=== PATIENT | female | born 1945 | race Caucasian/White ===

== ENCOUNTER 2016-07-09 12:57 | Outpatient (CLI) | payer MEDICARE, OTHER | END 2016-07-09 12:58 | disposition home or self-care (01) | DX: Z12.31 Encounter for screening mammogram for malignant neoplasm of breast (principal); Z80.3 Family history of malignant neoplasm of breast ==

== ENCOUNTER 2017-01-19 09:25 | Day surgery (SDC) | payer MEDICARE, OTHER ==
[2017-01-19] MEDS ORDERED: LACTATED RINGERS 1,000 ML IV ONE (09:36)
[2017-01-19] MEDS ORDERED: fentaNYL 100 MCG/2 ML VIAL IVP ONE (11:05)
[2017-01-19] MEDS ORDERED: MIDAZOLAM 2 MG/2 ML VIAL IVP ONE (11:05)
[2017-01-19 12:02] VITALS: BP 109/56
== END 2017-01-19 09:26 | disposition home or self-care (01) ==
LOC: SDS 09:25
PROVIDERS: ATTEND Internal Medicine
PROC: 0DJD8ZZ Inspection of Lower Intestinal Tract, Via Natural or Artificial Opening Endoscopic (ICD-10-PCS; principal; 2017-01-19 10:30)
DX: Z12.11 Encounter for screening for malignant neoplasm of colon (principal); K57.30 Diverticulosis of large intestine without perforation or abscess without bleeding; Z86.010 Personal history of colon polyps; I10 Essential (primary) hypertension
CPT/HCPCS: G0105; J7120

== ENCOUNTER 2017-04-05 15:58 | Outpatient (CLI) | payer MEDICARE, OTHER | END 2017-04-05 15:59 | disposition home or self-care (01) | LOC: LAB.R 15:58 | PROVIDERS: ATTEND Obstetrics & Gynecology | DX: N39.3 Stress incontinence (female) (male) (principal) | CPT/HCPCS: 87086 ==

== ENCOUNTER 2017-05-26 11:40 | Outpatient (CLI) | payer MEDICARE, OTHER ==
[2017-05-26 12:13] LABS: BILIRUBIN,URINE NEGATIVE (NEGATIVE); GLUCOSE, URINE (UA) NEGATIVE (NEGATIVE); KETONES,URINE (UA) NEGATIVE (NEGATIVE); LEUKOCYTE ESTERASE, URINE NEGATIVE (NEGATIVE); NITRITE,URINE NEGATIVE (NEGATIVE); OCCULT BLOOD,URINE NEGATIVE (NEGATIVE); PROTEIN,URINE NEGATIVE (NEGATIVE); UROBILINOGEN,URINE 0.2 (NORMAL) E.U./dL (NORMAL)
[2017-05-26 12:25] LABS: BACTERIA,URINE None Seen /HPF (None Seen); CLARITY,URINE CLEAR (CLEAR); MUCUS,URINE Few Strands; RBC,URINE None Seen /HPF (0-5); SQUAMOUS EPITHELIAL CELL,UR NONE SEEN (<= Few)
== END 2017-05-26 11:41 | disposition home or self-care (01) ==
LOC: LAB 11:40
PROVIDERS: ATTEND Obstetrics & Gynecology
DX: R82.99 Other abnormal findings in urine (principal)
CPT/HCPCS: 81001; 87086

== ENCOUNTER 2017-10-07 14:13 | Outpatient (CLI) | payer MEDICARE, OTHER ==
--- NOTE | 2017-10-10 17:28 | Mammography Report ---
DIGITAL SCREENING MAMMOGRAM: 10/07/2017 CLINICAL INDICATION: A 71-year-old with family history of breast cancer for screening. COMPARISON: 06/2016, 07/2015, 06/2014, 05/2013, 01/2012, 01/2011, 08/2009. TECHNIQUE: Routine CC and MLO projections were obtained of the breasts. FINDINGS: The breasts again demonstrate scattered fibroglandular densities bilaterally. Coarse and punctate, typically benign calcifications are present. No suspicious masses, clustered microcalcifications, or regions of architectural distortion are identified. IMPRESSION: BENIGN FINDINGS. RECOMMENDATION: Routine annual screening unless otherwise clinically indicated. BIRADS category 2 benign findings. STANDARD QUALIFYING STATEMENTS 1. This examination was reviewed with the aid of Computed-Aided Detection (CAD). 2. A negative or benign imaging report should not delay biopsy if clinically suspicious findings are present. Consider surgical consultation if warranted. More than 5% of cancers are not identified by imaging. 3. Dense breasts may obscure an underlying neoplasm. TD: 10/10/2017 16:00
== END 2017-10-07 14:14 | disposition home or self-care (01) ==
LOC: DI 14:13
PROVIDERS: ATTEND Physician Assistant Medical
DX: Z12.31 Encounter for screening mammogram for malignant neoplasm of breast (principal); Z80.3 Family history of malignant neoplasm of breast
CPT/HCPCS: 77067

== ENCOUNTER 2017-10-19 09:00 | Outpatient (CLI) | payer MEDICARE, OTHER ==
[2017-10-19 09:30] LABS: BASOPHILS # (AUTO) 0.1 10^3/uL (0.0-0.1); BASOPHILS % (AUTO) 2.2 %; EOSINOPHILS # (AUTO) 0.1 10^3/uL (0.0-0.7); EOSINOPHILS % (AUTO) 2.5 %; HGB - HEMOGLOBIN 12.6 g/dL (12.0-16.0); LYMPHOCYTES # (AUTO) 1.5 10^3/uL (1.5-3.5); LYMPHOCYTES % (AUTO) 30.8 %; MEAN CORPUSCULAR VOLUME 90.9 fL (81.0-99.0); MEAN PLATELET VOLUME 8.6 fL (7.9-10.8); MONOCYTES # (AUTO) 0.5 10^3/uL (0.0-1.0); MONOCYTES % (AUTO) 10.5 %; NEUTROPHILS # (AUTO) 2.6 10^3/uL (1.5-6.6); PLT - PLATELET COUNT 188 10^3/uL (130-450); RED CELL DISTRIBUTION WIDTH 13.3 % (12.0-15.0); WHITE BLOOD COUNT 4.8 x10^3/uL (4.8-10.8)
[2017-10-19 09:53] LABS: ALBUMIN 4.1 g/dL (3.2-5.5); ALBUMIN/GLOBULIN RATIO 1.3 (1.0-2.2); ALKALINE PHOSPHATASE 53 IU/L (42-121); ALT ALANINE AMINOTRANSFERASE 12 IU/L (10-60); AST ASPARTATE AMINOTRANSFERASE 20 IU/L (10-42); BILIRUBIN,TOTAL 0.4 mg/dL (0.2-1.0); BUN - BLOOD UREA NITROGEN 13 mg/dL (6-20); CALCIUM 9.5 mg/dL (8.5-10.3); CARBON DIOXIDE - CO2 29 mmol/L (21-32); CHLORIDE 103 mmol/L (101-111); CHOL/HDL RATIO 2.6 (<4.4); CHOLESTEROL 135 mg/dL; CREATININE 0.9 mg/dL (0.4-1.0); GFR - MDRD 62 (>89); GLUCOSE 98 mg/dL (70-100); HDL CHOLESTEROL 52 mg/dL; LDL CHOLESTEROL,CALCULATED 62 mg/dL; LDL/HDL RATIO 1.2 (<4.4); SODIUM 138 mmol/L (135-145); TOTAL PROTEIN 7.2 g/dL (6.7-8.2); VLDL CHOLESTEROL 21 mg/dL
[2017-10-20 13:48] LABS: HEPATITIS C ANTIBODY NON-REACTIVE (NON-REACTIVE)
== END 2017-10-19 09:01 | disposition home or self-care (01) ==
LOC: LAB 09:00
PROVIDERS: ATTEND Physician Assistant Medical
DX: E78.2 Mixed hyperlipidemia (principal); I10 Essential (primary) hypertension; Z79.899 Other long term (current) drug therapy; Z11.59 Encounter for screening for other viral diseases; Z72.89 Other problems related to lifestyle; M81.0 Age-related osteoporosis without current pathological fracture
CPT/HCPCS: 36415; 80053; 80061; 83721; 84443; 85025; 86803

== ENCOUNTER 2017-12-13 13:01 | Outpatient (CLI) | payer MEDICARE, OTHER ==
--- NOTE | 2017-12-14 08:23 | DEXA Report ---
Procedure Date: 12/13/2017 Accession Number: [id number] / [id number] Procedure: DEX - Dexa Spine and/or Hip CPT Code: FULL RESULT: EXAM: Dexa Spine and/or Hip DATE: 12/13/2017 1:44 PM CLINICAL HISTORY: OSTEOPOROSIS TECHNIQUE: Dual energy x-ray absorptiometry (DXA) was performed on a [employer] System. Regions measured are the AP Spine, femoral neck, and if needed forearm. COMPARISON: None. In accordance with the International Society for Clinical Densitometry (ISCD) guidelines, data from previous exams may be reanalyzed using current recommendations and techniques. This is done to allow a more accurate basis for comparison with the current study. FINDINGS: The data for the lumbar spine is as follows: BMD (g/cm/cm) T-SCORE Z-SCORE REGION L1 0.816 -2.6 -1.4 L2 0.952 -2.1 -0.8 L3 0.957 -2.0 -0.8 L4 1.141 -0.5 0.7 TOTAL 0.981 -1.7 -0.4 NOTE: All evaluable vertebrae are used for classification The data for the hip is as follows: BMD (g/cm/cm) T-SCORE Z-SCORE REGION Neck 0.795 -1.7 -0.3 TOTAL 0.846 -1.3 -0.1 NOTE: The femoral neck or total proximal femur, whichever is lowest, is used for classification. IMPRESSION: THE WHO CLASSIFICATION BASED ON THE INTERNATIONAL REFERENCE STANDARD IS OSTEOPENIA. THE FRACTURE RISK IS INCREASED. RECOMMENDATION: Patients with diagnosis of osteoporosis or osteopenia should have regular bone mineral density assessment. For those eligible for Medicare, routine testing is allowed once every 2 years. Testing frequency can be increased for patients who have rapidly progressing disease or for those who are receiving medical therapy to restore bone mass. COMMENT: World Health Organization (WHO) definitions for osteoporosis and osteopenia: NORMAL BMD: T-score at -1.0 or higher, fracture risk is low OSTEOPENIA BMD: T-score between -1.0 and -2.5, fracture risk is increased. OSTEOPOROSIS BMD: T-score at -2.5 or lower, fracture risk is high. National Osteoporosis Foundation recommends: 1. Obtain adequate dietary calcium (at least 1200 mg per day) and vitamin D (400-800 international units per day). 2. Participate, as appropriate, in regular weightbearing and muscle-strengthening exercise. 3. Avoid tobacco use and reduce alcohol and caffeine intake. 4. For more detailed information see the website at www.NOF.org.
== END 2017-12-13 13:02 | disposition home or self-care (01) ==
LOC: DI 13:01
PROVIDERS: ATTEND Physician Assistant Medical
DX: M81.0 Age-related osteoporosis without current pathological fracture (principal); M85.89 Other specified disorders of bone density and structure, multiple sites
CPT/HCPCS: 77080

== ENCOUNTER 2018-05-09 15:33 | Outpatient (CLI) | payer MEDICARE, OTHER ==
--- NOTE | 2018-05-10 10:45 | XRAY Report ---
Reason: HIP PAIN,LEFT Procedure Date: 05/09/2018 Accession Number: [id number] / [id number] Procedure: XR - Hip w/Pelvis 2-3V LT CPT Code: FULL RESULT: EXAM: LEFT HIP AND PELVIS RADIOGRAPHY EXAM DATE: 05/09/2018 03:59 PM. HISTORY: Hip pain, left. COMPARISONS: None. TECHNIQUE: 1 view of the pelvis and 1 view of the hip. FINDINGS: Bones: Normal. No fracture or bone lesion. Joints: The bilateral hip joint spaces are moderately narrowed. The pubis symphysis demonstrates degenerative changes. The sacroiliac joints are preserved. Soft Tissues: Normal. No soft tissue swelling. IMPRESSION: Relatively symmetric moderate degenerative changes of the hip joints and the pubic symphysis. RADIA
== END 2018-05-09 15:34 | disposition home or self-care (01) ==
LOC: DI 15:33
PROVIDERS: ATTEND Internal Medicine
DX: M16.0 Bilateral primary osteoarthritis of hip (principal)

== ENCOUNTER 2019-10-10 10:18 | Outpatient (CLI) | payer MEDICARE, OTHER ==
--- NOTE | 2019-10-10 14:51 | Mammography Report ---
BILATERAL DIGITAL SCREENING MAMMOGRAM 3D/2D: 10/10/2019 CLINICAL: Routine screening. Comparison is made to exams dated: 10/07/2017 mammogram, 07/09/2016 mammogram, and 07/07/2015 mammogram - [facility]. There are scattered fibroglandular elements in both breasts. No significant masses, calcifications, or other findings are seen in either breast. There has been no significant interval change. IMPRESSION: NEGATIVE There is no mammographic evidence of malignancy. A 1 year screening mammogram is recommended. This exam was interpreted at Station ID: [id number]. NOTE: For mammograms, a report in lay terms will be sent to the patient. Approximately 15% of breast malignancies will not be visualized mammographically. In the management of a palpable breast mass, a negative mammogram must not discourage biopsy of a clinically suspicious lesion. Electronically Signed By: Bonita perez/jairad:10/10/2019 12:19:50 ACR BI-RADS Category 1: Negative 3341F PARENCHYMAL PATTERN: (A) - The breast(s) demonstrate(s) scattered fibroglandular densities. BI-RADS CATEGORY: (1) - 1 RECOMMENDATION: (ANNUAL) - Recommend routine annual screening mammography. [id number] 1 year screening LATERALITY: (B)
== END 2019-10-10 10:19 | disposition home or self-care (01) ==
LOC: DI 10:18
DX: Z12.31 Encounter for screening mammogram for malignant neoplasm of breast (principal)
CPT/HCPCS: 77063; 77067

== ENCOUNTER 2020-04-22 11:46 | Outpatient (CLI) | payer MEDICARE, OTHER ==
[2020-04-22 12:15] LABS: BASOPHILS % (AUTO) 0.6 %; EOSINOPHILS # (AUTO) 0.1 10^3/uL (0.0-0.7); LYMPHOCYTES # (AUTO) 1.7 10^3/uL (1.5-3.5); LYMPHOCYTES % (AUTO) 33.6 %; MEAN CORPUSCULAR HEMOGLOBIN 28.8 pg (27.0-31.0); MEAN CORPUSCULAR HGB CONC 31.3 g/dL (32.0-36.0); MEAN PLATELET VOLUME 9.8 fL (7.9-10.8); MONOCYTES # (AUTO) 0.5 10^3/uL (0.0-1.0); MONOCYTES % (AUTO) 8.7 %; NEUTROPHILS # (AUTO) 2.9 10^3/uL (1.5-6.6); NEUTROPHILS % (AUTO) 55.9 %; PLT - PLATELET COUNT 236 10^3/uL (130-450); RED BLOOD COUNT 4.51 10^6/uL (4.20-5.40); RED CELL DISTRIBUTION WIDTH 12.4 % (12.0-15.0); WHITE BLOOD COUNT 5.2 x10^3/uL (4.8-10.8)
[2020-04-22 12:36] LABS: ALBUMIN 4.4 g/dL (3.2-5.5); ALBUMIN/GLOBULIN RATIO 1.4 (1.0-2.2); ALKALINE PHOSPHATASE 65 IU/L (42-121); ALT ALANINE AMINOTRANSFERASE 14 IU/L (10-60); AST ASPARTATE AMINOTRANSFERASE 17 IU/L (10-42); BILIRUBIN,TOTAL 0.4 mg/dL (0.2-1.0); BUN - BLOOD UREA NITROGEN 12 mg/dL (6-20); CARBON DIOXIDE - CO2 26 mmol/L (21-32); CHLORIDE 99 mmol/L (101-111); CHOL/HDL RATIO 3.2 (<4.4); CHOLESTEROL 185 mg/dL; CREATININE 0.9 mg/dL (0.4-1.0); GLUCOSE 99 mg/dL (70-100); HDL CHOLESTEROL 57 mg/dL; LDL CHOLESTEROL,CALCULATED 96 mg/dL; LDL/HDL RATIO 1.7 (<4.4); SODIUM 137 mmol/L (135-145); TOTAL PROTEIN 7.5 g/dL (6.7-8.2); VLDL CHOLESTEROL 32 mg/dL
--- NOTE | 2020-04-22 13:47 | XRAY Report ---
PROCEDURE: Knee 3 View RT INDICATIONS: KNEE JOINT PAIN, RIGHT TECHNIQUE: 3 views of the right knee(s) were acquired. COMPARISON: None. FINDINGS: Bones: No fractures or dislocations. No suspicious bony lesions. Mild tricompartmental periarticul ar osteophyte formation. Soft tissues: No joint effusion. Medial and lateral compartment chondrocalcinosis. IMPRESSION: 1. Osteoarthritis. 2. Chondrocalcinosis. 3. No acute fracture. No osseous lesion. If symptoms and/or clinical suspicion for pathology continue , further assessment with repeat plain films, or advanced imaging (e.g., CT, MRI, or bone scan) is re commended for further assessment. Reviewed by: Mary Shearer MD on 04/22/2020 1:46 PM PST Approved by: Mary Shearer MD on 04/22/2020 1:46 PM PST Station ID: [id number]
== END 2020-04-22 11:47 | disposition home or self-care (01) ==
LOC: LAB 11:46
PROVIDERS: ATTEND Nurse Practitioner
DX: M17.11 Unilateral primary osteoarthritis, right knee (principal); M11.261 Other chondrocalcinosis, right knee; M25.561 Pain in right knee; E78.2 Mixed hyperlipidemia; I10 Essential (primary) hypertension; K21.9 Gastro-esophageal reflux disease without esophagitis; Z79.899 Other long term (current) drug therapy
CPT/HCPCS: 36415; 80053; 80061; 83721; 84443; 85025

== ENCOUNTER 2020-06-20 15:14 | Outpatient (CLI) | payer MEDICARE, OTHER ==
--- NOTE | 2020-06-20 16:42 | Ultrasound Report ---
PROCEDURE: Pelvic w/Transvaginal INDICATIONS: POSTMENOPAUSAL BLEEDING TECHNIQUE: Real-time scanning was performed of the pelvic organs, with image documentation. Additional endovagi nal scanning was necessary due to incomplete visualization of the adnexal and endometrial structures by transabdominal scanning. COMPARISON: None. FINDINGS: No pathologic free abdominal or pelvic fluid. Uterus: Uterus is normal in size at 8.5 x 3.4 x 4.8 cm. The endometrium measures 25 mm in combined thickness, predominantly secondary to a focal nodular mass measuring 31 mm.. Ovaries: The right ovary is not seen secondary to overlying bowel. Left ovary is within normal limit s measuring 22 mm. IMPRESSION: 1. Focal endometrial thickening as described above, possibly representing a polyp or fibroid. Hystero scopy/endometrial sampling versus MRI of the pelvis with and without intravenous contrast is recommen ded for further assessment. 2. Right ovary is not well seen. Left ovary is within normal limits. Reviewed by: Mary Shearer MD on 06/20/2020 4:41 PM PST Approved by: Mary Shearer MD on 06/20/2020 4:41 PM PST Station ID: [id number]
== END 2020-06-20 15:15 | disposition home or self-care (01) ==
LOC: DI 15:14
PROVIDERS: ATTEND Internal Medicine
DX: N95.0 Postmenopausal bleeding (principal); R93.89 Abnormal findings on diagnostic imaging of other specified body structures

== ENCOUNTER 2020-08-15 11:01 | Outpatient (CLI) | payer MEDICARE, OTHER ==
[2020-08-15 11:16] LABS: BASOPHILS # (AUTO) 0.1 10^3/uL (0.0-0.1); BASOPHILS % (AUTO) 1.2 %; EOSINOPHILS # (AUTO) 0.1 10^3/uL (0.0-0.7); EOSINOPHILS % (AUTO) 1.6 %; HCT - HEMATOCRIT 41.7 % (37.0-47.0); HGB - HEMOGLOBIN 13.3 g/dL (12.0-16.0); LYMPHOCYTES # (AUTO) 1.7 10^3/uL (1.5-3.5); LYMPHOCYTES % (AUTO) 29.9 %; MEAN CORPUSCULAR HEMOGLOBIN 29.3 pg (27.0-31.0); MEAN CORPUSCULAR HGB CONC 31.9 g/dL (32.0-36.0); MEAN CORPUSCULAR VOLUME 91.9 fL (81.0-99.0); MEAN PLATELET VOLUME 9.7 fL (7.9-10.8); MONOCYTES # (AUTO) 0.6 10^3/uL (0.0-1.0); MONOCYTES % (AUTO) 9.6 %; NEUTROPHILS # (AUTO) 3.3 10^3/uL (1.5-6.6); NEUTROPHILS % (AUTO) 57.5 %; PLT - PLATELET COUNT 256 10^3/uL (130-450); RED BLOOD COUNT 4.54 10^6/uL (4.20-5.40); RED CELL DISTRIBUTION WIDTH 12.4 % (12.0-15.0); WHITE BLOOD COUNT 5.8 x10^3/uL (4.8-10.8)
== END 2020-08-15 11:02 | disposition home or self-care (01) ==
LOC: LAB 11:01
PROVIDERS: ATTEND Obstetrics & Gynecology
DX: Z01.812 Encounter for preprocedural laboratory examination (principal); N95.0 Postmenopausal bleeding; R93.89 Abnormal findings on diagnostic imaging of other specified body structures; Z20.822 Contact with and (suspected) exposure to COVID-19
CPT/HCPCS: 36415; 85025; U0004

== ENCOUNTER 2020-08-20 07:29 | Day surgery (SDC) | payer MEDICARE, OTHER ==
--- NOTE | 2020-08-20 06:58 | HISTORY & PHYSICAL EXAMINATION ---
HPI - History of Present Illness HPI Comment/Other: Patient is a 74-year-old here for assessment of postmenopausal bleeding. Patient reported that she started having bleeding about 6 weeks ago.. She has had 4 episodes lasting about 4 to 5 days each not high-volume just light bleeding. She believes that the bleeding started the first week in June. She underwent a pelvic ultrasound 06/20/2020 that showed a focal endometrial thickening to 25 mm and a nodular mass measuring 31 mm. She also underwent a Pap smear. She has a history of abnormal Pap smears about 45 years ago. On 06/13/2020 that was normal normal on follow-up. She has had 4 vaginal deliveries. No history of hormone replacement therapy. She is sexually active but no vaginal penetration. Past medical history is notable for hypertension, hyperlipidemia, GERD, and colon cancer which did not require chemo/rads. Family history notable for multiple family members with breast cancer including her mother diagnosed at age 42. Her last mammogram was 10/10/2019 Allergies: No Known Allergies Medications: OXYBUTYNIN CHLORIDE ER 10 MG ORAL TABLET EXTENDED RELEASE 24 HOUR (OXYBUTYNIN CHLORIDE) take one tablet by mouth daily; Route: ORAL OMEPRAZOLE 20 MG ORAL CAPSULE DELAYED RELEASE (OMEPRAZOLE) take one tablet by mouth daily; Route: ORAL ESTRACE 0.1 MG/GM VAGINAL CREAM (ESTRADIOL) Insert 1 gram intravaginally BIW- TIW; Route: VAGINAL VITAMIN D (CHOLECALCIFEROL) 1000 UNIT ORAL CAPSULE (CHOLECALCIFEROL) take one tablet by mouth daily; Route: ORAL MULTI-VITAMIN DAILY ORAL TABLET (MULTIPLE VITAMIN) take one tablet by mouth daily; Route: ORAL CO Q-10 100 MG ORAL CAPSULE (COENZYME Q10) Take one (1) tablet by mouth daily.; Route: ORAL FISH OIL 1200 MG ORAL CAPSULE (OMEGA-3 FATTY ACIDS) take two tablets by mouth daily; Route: ORAL ATORVASTATIN CALCIUM 10 MG ORAL TABLET (ATORVASTATIN CALCIUM) take one tablet by mouth at night daily; Route: ORAL LISINOPRIL 20 MG ORAL TABLET (LISINOPRIL) Take one (1) tablet by mouth daily.; Route: ORAL Problems: Thickened endometrium (ICD-793.5) (BJI45-Y88.00) Osteoarthritis (ICD-715.90) (GGF05-V35.90) Postmenopausal bleeding (ICD-627.1) (UTL92-E78.0) Knee joint pain, right (ICD-719.46) (SNB43-A57.561) Shingles (ICD-053.9) (SZB61-W43.9) Low back pain, chronic (ICD-724.2) (ITA06-A11.5) Hip pain, left (ICD-719.45) (NVX55-Y21.552) GERD (ICD-530.81) (JFF27-D87.9) Sun damaged skin (ICD-692.79) (DNN14-F75.8) Overweight (ICD-278.02) (XTJ75-R34.3) Body mass index (BMI) 31.0-31.99, adult (ICD-V85.31) (RIC67-E14.31) Adult preventive care (ICD-V70.0) (KUU23-U16.00) Medication use (ICD-V58.69) (ZUJ21-K74.899) History of colon cancer (ICD-V10.05) (KUS76-E32.038) Onychomycosis (ICD-112.3) (RJA33-Q99.2) Nerve pain (ICD-729.2) (PUD55-S73.2) Seasonal allergic rhinitis (ICD-477.9) (QLU93-C52.2) Osteoporosis (ICD-733.00) (HYA50-F33.0) Hyperlipidema NOS (combined) (ICD-272.4) (PAU85-W60.2) Incontinence, mixed, urge/stress (ICD-788.33) (GNT96-E58.46) Migraines (ICD-346.90) (DNW55-I88.909) Hypertension, benign (ICD-401.1) (NXT83-A30) [Family History-CCC] Social History Summary: Patient has never smoked. Patient has never used smokeless tobacco. Passive Smoke: Y Alcohol Use: Y Drug Use: N HIV/High Risk: N Regular Exercise: N Hx Domestic Abuse: N Cheondoism Affecting Care: N Sexually Active: Y Lives in [place] with her RAZ M T: None E: Special occasions only D: None Safe at home Social History Reviewed: 07/22/2020 Previous Social History: Patient has never smoked. Patient has never used smokeless tobacco. Passive Smoke: Y Alcohol Use: Y Drug Use: N HIV/High Risk: N Regular Exercise: N Hx Domestic Abuse: N Cheondoism Affecting Care: N Risk Factors-CCC with prev: Smoked Tobacco Use: Never smoker Smokeless Tobacco Use: Never Tobacco Use Comments: Childhood Exposure- Father Passive Smoke Exposure: yes HIV High Risk Behavior: no Exercise: no Alcohol Use: yes Type: very rare wine Drinks per day: 1 Drug Use: no Vital Signs: Patient Profile: 74 Years Old Female Height: 62.05 inches (157.6 cm) Weight: 182 pounds BMI: 33.35 BP sittin / 74 Cuff size: regular Vitals Entered By: JOSE G Paniagua (July 22, 2020 3:20 PM) Meds Reviewed: Done Allergies Reviewed: Done No known allergies: T Past Medical History: Irregular Heartbeat Heart Murmur HTN Hyperlipidemia Anemia Colon cancer surgery only with no recurren Past Surgical History: Colon Resection 2007 OB Initial Intake Information Race: White Marital status: SOLAR PANEL INSTALLER Review of Systems ROS Comments: As per HPI, otherwise remaining systems are negative. Flowsheet View for Follow-up Visit Weight: 182 Blood pressure: 128 / 74 Physical Constitutional: GEN: NAD HEAD: NCAT EYES: No scleral icterus or conjunctival injection NECK: No cervical LAD or TM CV: RRR RESP: CTAB, normal effort ABD: S&NT/ND PSYCH: appropriate affect NEURO: alert and oriented, normal gait and coordination EXT: WWP Impression & Recommendations: Problem # 1: Postmenopausal bleeding (ICD-627.1) (QNO73-Z90.0) We reviewed the clinical implications for post-menopausal bleeding and concern for hyperplasia/malignancy Reviewed that EMB can be performed to get preliminary assessment of hyperplasia risk. However, it is a poor mechanism to smaple solid masses and the nodular mass should be sampled and removed. Recommended proceeding with hysteroscopy D&C and offered EMB as a preliminary first step. Patient is opting to proceed with hysteroscopy D&C R/B/A reviewed Request for OR submitted. Patient to return for preop visit once surgery date established PMH/PSH - Past Medical History Cardiovascular: positive: Hypertension, High cholesterol, Murmur Respiratory: positive: None Endocrine/Autoimmune: positive: None GI: positive: GERD, Other : positive: Incontinence, Frequency HEENT: positive: None Psych: positive: None Musculoskeletal: positive: Osteoarthritis Derm: positive: None MRSA Hx?: No - Past Surgical History General: positive: Colonoscopy, EGD, Other Ortho: positive: Hip replacement Social & Family Hx - Social History Smoking Status: Never smoker Meds/Allgy - Home Medications Home Medications: Ambulatory Orders Medication Instructions Recorded Confirmed Atorvastatin Calcium 10 mg PO HS 09/26/12 08/07/20 Lisinopril [Zestril] 20 mg PO DAILY 09/26/12 08/07/20 Calcium Carbonate/Vitamin D3 1 each PO BID 05/17/17 08/07/20 [Calcium 600-Vit D3 400 Tablet] Cholecalciferol (Vitamin D3) 1,000 units PO DAILY 05/17/17 08/07/20 [Vitamin D3] Multivit with Calcium,Iron,Min 1 each PO DAILY 05/17/17 08/07/20 [Multiple Vitamins For Women] [place]-3S/Dha/Epa/Fish Oil [Fish 2 cap PO DAILY 05/17/17 08/07/20 Oil [place]-3 Softgel] Oxybutynin Chloride [Ditropan Xl] 10 mg PO DAILY 05/17/17 08/07/20 Ubidecarenone [Co Q-10] 100 mg PO DAILY 05/17/17 08/07/20 Omeprazole [PriLOSEC] 20 mg PO DAILY 08/19/17 08/07/20 - Allergies Allergies/Adverse Reactions: Allergies Allergy/AdvReac Type Severity Reaction Status Date / Time No Known Drug Allergies Allergy Verified 01/18/17 10:34
[~2020-08-20 07:29] MED LIST: ACETAMINOPHEN 1,000 MG/100 ML 100 ML IV ONE; BUPIVACAINE 0.25% PF 30 ML VIAL ONE; CELECOXIB 100 MG CAPSULE PO ONE; GABAPENTIN 400 MG CAPSULE ONE; LIDOCAINE MPF 2%-EPI 1:200000 20 ML VIAL ONE; SILVER NITRATE APPLICATOR TOP ONE; VASOPRESSIN 20 UNIT/ML VIAL ONE
[2020-08-20] MEDS ORDERED: LACTATED RINGERS 1,000 ML IV ONE (07:32)
[2020-08-20] MEDS ORDERED: fentaNYL 100 MCG/2 ML VIAL ONE (07:53)
[2020-08-20] MEDS ORDERED: ROCURONIUM 50 MG/5 ML VIAL ONE (07:54)
[2020-08-20] MEDS ORDERED: DEXAMETHASONE 4 MG/ML VIAL ONE (07:54)
[2020-08-20] MEDS ORDERED: PROPOFOL 200 MG/20 ML VIAL IVP ONE (07:54)
[2020-08-20] MEDS ORDERED: LIDOCAINE-MPF 2% 5 ML VIAL ONE (07:54)
[2020-08-20] MEDS ORDERED: ONDANSETRON 4 MG/2 ML VIAL ONE (07:54)
[2020-08-20] MEDS ORDERED: METOCLOPRAMIDE 10 MG/2 ML VIAL IVP PRN (08:23)
[2020-08-20] MEDS ORDERED: HYDROmorphone 0.5 MG/0.5 ML SYRINGE IVP PRN (08:23)
[2020-08-20] MEDS ORDERED: ATROPINE ABBOJECT 1 MG/10 ML SYRINGE IVP PRN (08:23)
[2020-08-20] MEDS ORDERED: MORPHINE 2 MG/ML CARPUJECT IVP PRN (08:23)
[2020-08-20] MEDS ORDERED: fentaNYL 100 MCG/2 ML VIAL IVP PRN (08:23)
[2020-08-20] MEDS ORDERED: ONDANSETRON 4 MG/2 ML VIAL IVP PRN (08:23)
[2020-08-20] MEDS ORDERED: NALOXONE 0.4 MG/ML VIAL IVP PRN (08:23)
[2020-08-20] MEDS ORDERED: ePHEDrine 50 MG/ML VIAL IVP PRN (08:23)
--- NOTE | 2020-08-20 08:23 | ANESTHESIA ---
Pre-Anesthesia VS, & Labs - Diagnosis post menopausal bleeding - Procedure Hysteroscopy D&C with polypectomy and myomectomy Vital Signs: Temp Pulse Resp BP Pulse Ox 36 C L 70 16 132/80 H 97 08/20/20 07:35 08/20/20 07:35 08/20/20 07:35 08/20/20 07:35 08/20/20 07:35 Height: 5 ft 2 in Weight (kg): 81 kg Body Mass Index: 32.6 BMI Classification: Obese - NPO >8 hours - Is Patient ?: No - Lab Results Current Lab Results: Laboratory Tests 08/20/20 07:55: POC Whole Bld Glucose 89 Lab results reviewed: Yes Home Medications and Allergies Atorvastatin Calcium 10 mg PO HS 09/26/12 Lisinopril [Zestril] 20 mg PO DAILY 09/26/12 Calcium Carbonate/Vitamin D3 [Calcium 600-Vit D3 400 Tablet] 1 each PO BID 05/17/17 Cholecalciferol (Vitamin D3) [Vitamin D3] 1,000 units PO DAILY 05/17/17 Multivit with Calcium,Iron,Min [Multiple Vitamins For Women] 1 each PO DAILY 05/17/17 [place]-3S/Dha/Epa/Fish Oil [Fish Oil [place]-3 Softgel] 2 cap PO DAILY 05/17/17 Oxybutynin Chloride [Ditropan Xl] 10 mg PO DAILY 05/17/17 Ubidecarenone [Co Q-10] 100 mg PO DAILY 05/17/17 Omeprazole [PriLOSEC] 20 mg PO DAILY 08/19/17 Allergies/Adverse Reactions: Allergies Allergy/AdvReac Type Severity Reaction Status Date / Time No Known Drug Allergies Allergy Verified 01/18/17 10:34 Anes History & Medical History - Anesthetic History Anesthesia Complications: reports: No previous complications Family history of Anesthesia Complications: Denies Family history of Malignant Hyperthermia: Denies - Medical History Cardiovascular: reports: Hypertension, High cholesterol, Murmur Pulmonary: reports: None Gastrointestinal: reports: GERD, Other Urinary: reports: Incontinence, Frequency Musculoskeletal: reports: Osteoarthritis Endocrine/Autoimmune: reports: None Skin: reports: None Smoking Status: Never smoker - Surgical History General: reports: Colonoscopy, EGD, Other Orthopedic: reports: Hip replacement Exam General: Alert, Oriented x3, Cooperative, No acute distress Dental: WNL Mouth Openin Fingerbreadth Neck Mobility: Normal Mallampati classification: II Respiratory: Lungs clear, Normal breath sounds, No respiratory distress Cardiovascular: Regular rate, Normal S1, Normal S2, No murmurs Plan Anesthesia Type: General Consent for Procedure(s) Verified and Reviewed: Yes Code Status: Attempt Resuscitation ASA classification: 2-Mild systemic disease Is this case an emergency?: No
[2020-08-20] MEDS ORDERED: LACTATED RINGERS 1,000 ML IV SCH (09:00)
[2020-08-20] MEDS ORDERED: BUPIVACAINE 0.25% PF 30 ML VIAL SUBQ ONE ×2 (09:14)
[2020-08-20] MEDS ORDERED: LIDOCAINE 2%-EPI 1:100000 20 ML MDV SUBQ ONE ×2 (09:15)
[2020-08-20] MEDS ORDERED: VASOPRESSIN 20 UNIT/ML VIAL IVP ONE ×2 (09:15)
[2020-08-20] MEDS ORDERED: LIDOCAINE OINTMENT 5% 35.44 GM TUBE ONE (09:59)
[2020-08-20] MEDS ORDERED: LIDOCAINE OINTMENT 5% 35.44 GM TUBE TOP ONE (10:00)
[2020-08-20] MEDS ORDERED: LACTATED RINGERS 250 ML IV ONE (10:10)
--- NOTE | 2020-08-20 10:34 | OPERATIVE REPORT ---
Operative Report - General Procedure Date: 08/20/20 Planned Procedure: Hysteroscopy D&C with polypectomy/myomectomy Pre-Op Diagnosis: Postmenopausal bleeding, thickened endometrium Procedure Performed: Hysteroscopy D&C with myomectomy Post Op Diagnosis: Same and large intrauterine mass c/w necrotizing fibroid - Procedure Note Primary Surgeon: Ольга Joshi MD Anesthesia Provider: Luis Nassar CRNA Anesthesia Technique: General LMA Pathology: Uterine contents IV Fluids (mL): 750 Estimated Blood Loss (mL): 10 Urine Output (mL): 0 (In and out catheterization at start of procedure) Indications: Patient is a 74-year-old here for hysteroscopy for assessment of postmenopausal bleeding. Patient reported that she started having bleeding about 6 weeks ago.. She has had 4 episodes lasting about 4 to 5 days each not high-volume just light bleeding. She believes that the bleeding started the first week in June. She underwent a pelvic ultrasound 06/20/2020 that showed a focal endometrial thickening to 25 mm and a nodular mass measuring 31 mm. She also underwent a Pap smear on 06/13/2020 that was normal. She has a history of abnormal Pap smears about 45 years ago, normal on follow-up. She has had 4 vaginal deliveries. No history of hormone replacement therapy. She is sexually active but no vaginal penetration. Past medical history is notable for hypertension, hyperlipidemia, GERD, and colon cancer which did not require chemo/rads. Findings: Large intrauterine mass that encompassed all of the endometrial cavity. Soft textured on outer edges and firm/fibrous at base. Internal component of the mass showed cavitations devoid of fluid or other contents. Mass was anchored at right lateral fundal area, just below tubal ostia. Uterine cavity was otherwise empty with smooth contour with bilateral tubal ostia visualized. Complications: None - Other Other Information/Narrative: Risks benefits and alternatives to the procedure were reviewed. Consent was again confirmed. Patient was taken to the operating room where she underwent general anesthesia. She was positioned in dorsolithotomy position with legs resting in yellowfin stirrups. She was prepped and draped in the usual sterile fashion. Preoperative antibiotics were not indicated. Preoperative checklist was performed. Exam under anesthesia was performed. Speculum was placed in the vagina and the cervix was visualized. Single-tooth tenaculum was placed at the anterior cervical lip. Paracervical block was administered using a total of 20 cc of 1% lidocaine with epinephrine mixed with 0.25% bupivicaine was injected at the 4:00 and 8:00 positions lateral to the portio of the cervix. A total of 6 cc of vasopression 10units:50 cc NS was injected around the cervix. The cervical os was serially dilated with Hegar dilators to accommodate the caliber of the diagnostic hysteroscope. The hysteroscope was inserted and findings were noted as above. The hysteroscopic morcellator was inserted through the operative port. The intrauterine mass were morcellated under direct visualization. The base of the mass proved to be fibrotic and could not be morcellated with the light morcellator. The Myoscure Ultra morcellator was inserted and the remainder of the mass was completely morcellated under direct visualization. Uterine cavity was smooth at close of the procedure. Hysteroscope was removed. Sharp curettage D&C was performed with sharp curettage. All instruments were removed from the uterus. Tenaculum was removed. Tenaculum sites were noted to be hemostatic. All instruments were removed from the vagina. Procedure was well-tolerated without complication. Fluid deficit: 850 cc NS
[2020-08-20 11:09] VITALS: BP 129/66
--- NOTE | 2020-08-20 14:59 | ANESTHESIA POST OP EVALUATION ---
Anesthesia Post Eval - Post Anesthesia Eval Vitals: Last Vital Signs Temp 36.4 C L 08/20/20 10:40 Pulse 78 08/20/20 11:08 Resp 14 08/20/20 11:08 BP 129/66 08/20/20 11:08 Pulse Ox 97 08/20/20 11:08 CV Function Including HR & BP: Stable Pain Control: Satisfactory Nausea & Vomiting: Negative Mental Status: Baseline Respiratory Status: Airway Patent Hydration Status: Satisfactory Anesthesia Complications: None
== END 2020-08-20 07:30 | disposition home or self-care (01) ==
LOC: OR 07:29
PROVIDERS: ATTEND Obstetrics & Gynecology
PROC: 0UB98ZZ Excision of Uterus, Via Natural or Artificial Opening Endoscopic (ICD-10-PCS; principal; 2020-08-20 08:30)
PROC: 0UDB7ZZ Extraction of Endometrium, Via Natural or Artificial Opening (ICD-10-PCS; 2020-08-20 08:30)
DX: C54.9 Malignant neoplasm of corpus uteri, unspecified (principal); I10 Essential (primary) hypertension; E78.5 Hyperlipidemia, unspecified; K21.9 Gastro-esophageal reflux disease without esophagitis; E66.9 Obesity, unspecified; Z68.32 Body mass index [BMI] 32.0-32.9, adult; Z85.038 Personal history of other malignant neoplasm of large intestine; Z90.49 Acquired absence of other specified parts of digestive tract

== ENCOUNTER 2020-08-26 12:31 | Outpatient (CLI) | payer MEDICARE, OTHER ==
[2020-08-26 12:48] LABS: HCT - HEMATOCRIT 41.3 % (37.0-47.0); HGB - HEMOGLOBIN 13.3 g/dL (12.0-16.0); MEAN CORPUSCULAR HEMOGLOBIN 29.3 pg (27.0-31.0); MEAN CORPUSCULAR HGB CONC 32.2 g/dL (32.0-36.0); MEAN PLATELET VOLUME 9.7 fL (7.9-10.8); RED BLOOD COUNT 4.54 10^6/uL (4.20-5.40); RED CELL DISTRIBUTION WIDTH 12.5 % (12.0-15.0); WHITE BLOOD COUNT 5.9 x10^3/uL (4.8-10.8)
[2020-08-26 13:02] LABS: ALBUMIN 4.4 g/dL (3.2-5.5); ALBUMIN/GLOBULIN RATIO 1.4 (1.0-2.2); BILIRUBIN,TOTAL 0.4 mg/dL (0.2-1.0); CALCIUM 10.1 mg/dL (8.5-10.3); CREATININE 0.9 mg/dL (0.4-1.0); POTASSIUM 3.8 mmol/L (3.5-5.0); TOTAL PROTEIN 7.6 g/dL (6.7-8.2)
== END 2020-08-26 12:32 | disposition home or self-care (01) ==
LOC: LAB 12:31
PROVIDERS: ATTEND Obstetrics & Gynecology
DX: C54.1 Malignant neoplasm of endometrium (principal)
CPT/HCPCS: 36415; 80053; 85027; 86304

== ENCOUNTER 2020-09-03 15:13 | Outpatient (CLI) | payer MEDICARE, OTHER ==
[2020-09-03] MEDS ORDERED: IOPAMIDOL-300 50 ML VIAL ONE (15:18)
[2020-09-03] MEDS ORDERED: IOPAMIDOL-300 100 ML VIAL ONE (15:19)
[2020-09-03] MEDS ORDERED: IOPAMIDOL-300 100 ML VIAL IVP ONE (17:02)
[2020-09-03] MEDS ORDERED: IOPAMIDOL-300 50 ML VIAL PO ONE (17:03)
--- NOTE | 2020-09-03 17:13 | CT Report ---
PROCEDURE: Abdomen/Pelvis W INDICATIONS: ENDOMETRIAL CA CONTRAST: IV CONTRAST: Isovue 300 ml: 100 PO CONTRAST: Isovue 300 ml50 TECHNIQUE: After the administration of contrast, 5 mm thick sections acquired from the diaphragms to the sym physis. 5 mm thick coronal and sagittal reformats were acquired. For radiation dose reduction, the following was used: automated exposure control, adjustment of mA and/or kV according to patient size . COMPARISON: 06/20/2020 pelvic ultrasound.. FINDINGS: Image quality: Excellent. ABDOMEN: Lung bases: Lung bases are clear. Heart size is normal. Solid organs: Liver and spleen are normal in size and enhancement. Gallbladder appears normal Bili garcia system is non dilated. Pancreas enhances normally. No adrenal nodules. Kidneys demonstrate nor mal size and enhancement, without hydronephrosis. Peritoneum and bowel: Bowel loops demonstrate normal wall thickness and caliber. No free fluid or a ir. Nodes and vessels: No retroperitoneal or mesenteric adenopathy by size criteria. Aorta and inferior vena cava are normal in size. guidance Miscellaneous: No ventral hernias. PELVIS: Genitourinary: Bladder wall thickness is normal. Uterus is anteverted and present, and there is mil d heterogeneity at the fundal portion of the uterus best seen only on series 3 image 69. Miscellaneous: No inguinal hernias or adenopathy. Bones: No suspicious bony lesions. No vertebral body compression fractures. IMPRESSION: Endometrial lining is mildly heterogeneous by CT scanning, but sonographic assessment of the endometrial lining appearance was better accomplished with the prior study 06/20/2020. No evidenc e of metastatic disease within the pelvis, or distant metastatic disease.. Reviewed by: Misael Dean MD on 09/03/2020 5:12 PM PDT Approved by: Misael Dean MD on 09/03/2020 5:12 PM PDT Station ID: [id number]
--- NOTE | 2020-09-03 17:18 | CT Report ---
PROCEDURE: CHEST W INDICATIONS: ENDOMETRIAL CA CONTRAST: IV CONTRAST: Isovue 300 ml: 100 PO CONTRAST: *NO PO CONTRAST TECHNIQUE: After the administration of intravenous contrast, 5 mm thick sections acquired from the pulmonary api dm to the posterior costophrenic angles. 7 mm thick coronal MIP reformats were acquired. For radia tion dose reduction, the following was used: automated exposure control, adjustment of mA and/or kV according to patient size. COMPARISON: CT abdomen/pelvis same day.. FINDINGS: Image quality: Excellent. Lungs and pleura: No acute air space opacities. No pleural effusions or pneumothorax. Central and peripheral airways are patent and normal in caliber. Mediastinum: Heart size is normal. No pericardial effusion. No mediastinal or hilar adenopathy by size criteria. Thoracic aorta and central pulmonary arteries are normal in size. Esophagus is parris l in caliber. No hiatal hernia. Bones and chest wall: No suspicious bony lesions. No vertebral body compression fractures. No axil carmen or supraclavicular adenopathy by size criteria. Thyroid gland appears normal where well seen. Abdomen: Visualized upper abdominal solid organs appear normal. Upper abdominal bowel loops are nor mal in caliber. IMPRESSION: No evidence of metastatic disease from endometrial carcinoma within the chest. Reviewed by: Misael Dean MD on 09/03/2020 5:17 PM PDT Approved by: Misael Dean MD on 09/03/2020 5:17 PM PDT Station ID: [id number]
== END 2020-09-03 15:14 | disposition home or self-care (01) ==
LOC: DI 15:13
PROVIDERS: ATTEND Obstetrics & Gynecology
DX: C54.1 Malignant neoplasm of endometrium (principal)
CPT/HCPCS: 71260; 74177; Q9967

== ENCOUNTER 2020-09-04 15:19 | Outpatient (CLI) | payer MEDICARE, OTHER | END 2020-09-04 15:20 | disposition home or self-care (01) | LOC: RT 15:19 | PROVIDERS: ATTEND Obstetrics & Gynecology | DX: Z01.810 Encounter for preprocedural cardiovascular examination (principal) | CPT/HCPCS: 93005 ==

== ENCOUNTER 2020-11-26 06:13 | Day surgery (SDC) | payer MEDICARE, OTHER ==
[2020-11-26] MEDS ORDERED: ceFAZolin 2 GM/50 ML 2 GM/50 ML BAG IV ONE (06:20)
[2020-11-26] MEDS ORDERED: LACTATED RINGERS 1,000 ML IV ONE ×2 (06:25→08:31)
[2020-11-26] MEDS ORDERED: PROPOFOL 200 MG/20 ML VIAL IVP ONE (07:10)
[2020-11-26] MEDS ORDERED: MIDAZOLAM 2 MG/2 ML VIAL ONE (07:10)
[2020-11-26] MEDS ORDERED: fentaNYL 100 MCG/2 ML VIAL ONE (07:10)
[2020-11-26] MEDS ORDERED: LIDOCAINE-MPF 2% 5 ML VIAL ONE (07:11)
--- NOTE | 2020-11-26 07:14 | ANESTHESIA ---
Pre-Anesthesia VS, & Labs - Diagnosis uterine cancer - Procedure port placement Vital Signs: Temp Pulse Resp BP Pulse Ox 36 C L 73 16 130/90 H 96 11/26/20 06:30 11/26/20 06:30 11/26/20 06:30 11/26/20 06:30 11/26/20 06:30 Height: 5 ft 2 in Weight (kg): 81.3 kg Body Mass Index: 32.8 BMI Classification: Obese - NPO >8 hours - Is Patient ?: No Home Medications and Allergies Atorvastatin Calcium 10 mg PO HS 09/26/12 Lisinopril [Zestril] 20 mg PO DAILY 09/26/12 Calcium Carbonate/Vitamin D3 [Calcium 600-Vit D3 400 Tablet] 1 each PO BID 05/17/17 Cholecalciferol (Vitamin D3) [Vitamin D3] 1,000 units PO DAILY 05/17/17 Multivit with Calcium,Iron,Min [Multiple Vitamins For Women] 1 each PO DAILY 05/17/17 [place]-3S/Dha/Epa/Fish Oil [Fish Oil [place]-3 Softgel] 2 cap PO DAILY 05/17/17 Ubidecarenone [Co Q-10] 100 mg PO DAILY 05/17/17 Omeprazole [PriLOSEC] 20 mg PO DAILY 08/19/17 Allergies/Adverse Reactions: Allergies Allergy/AdvReac Type Severity Reaction Status Date / Time No Known Drug Allergies Allergy Verified 11/25/20 10:01 Anes History & Medical History - Anesthetic History Anesthesia Complications: reports: No previous complications - Medical History Cardiovascular: reports: Hypertension, High cholesterol, Murmur Pulmonary: reports: None Gastrointestinal: reports: GERD, Other Urinary: reports: Incontinence, Frequency Musculoskeletal: reports: Osteoarthritis Endocrine/Autoimmune: reports: None Skin: reports: None Smoking Status: Never smoker History of Cancer?: Yes - Surgical History General: reports: Colonoscopy, EGD, Other Gynecologic: reports: Dilation and currettage, Hysterectomy Orthopedic: reports: Hip replacement Exam General: Alert Dental: WNL Mouth Opening: Greater than 4 Fingerbreadths Mallampati classification: II Thyromental Distance: greater than 6 cm Respiratory: Lungs clear Cardiovascular: Regular rate, Normal S1, Normal S2 Plan Anesthesia Type: General, MAC Consent for Procedure(s) Verified and Reviewed: Yes Code Status: Attempt Resuscitation ASA classification: 3-Severe systemic disease Is this case an emergency?: No
[2020-11-26] MEDS ORDERED: BUPIVACAINE 0.5% PF 30 ML VIAL ONE (07:19)
[2020-11-26] MEDS ORDERED: LIDOCAINE 1% 50 ML MDV ONE (07:19)
--- NOTE | 2020-11-26 07:22 | HISTORY & PHYSICAL EXAMINATION ---
Chief Complaint - Chief Complaint Chief Complaint: uterine cancer History of Present Illness - History Obtained From Records Reviewed: yes History obtained from: pt Exam Limitations: none - History of Present Illness HPI Comment/Other: Recent diagnosis and surgery for uterine cancer. Chemotherapy has been recommended. 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: Dilation and currettage, Hysterectomy Meds/Allgy - Home Medications Home Medications: Ambulatory Orders Medication Instructions Recorded Confirmed Atorvastatin Calcium 10 mg PO HS 09/26/12 11/26/20 Lisinopril [Zestril] 20 mg PO DAILY 09/26/12 11/26/20 Calcium Carbonate/Vitamin D3 1 each PO BID 05/17/17 11/26/20 [Calcium 600-Vit D3 400 Tablet] Cholecalciferol (Vitamin D3) 1,000 units PO DAILY 05/17/17 11/26/20 [Vitamin D3] Multivit with Calcium,Iron,Min 1 each PO DAILY 05/17/17 11/26/20 [Multiple Vitamins For Women] [place]-3S/Dha/Epa/Fish Oil [Fish 2 cap PO DAILY 05/17/17 11/26/20 Oil [place]-3 Softgel] Ubidecarenone [Co Q-10] 100 mg PO DAILY 05/17/17 11/26/20 Omeprazole [PriLOSEC] 20 mg PO DAILY 08/19/17 11/26/20 Prochlorperazine Maleate 10 mg PO Q6HR PRN #30 tab 10/17/20 11/26/20 [Compazine] Lidocaine/Prilocain 2.5% Cream 5 applic TOP UD #1 gm 11/10/20 11/26/20 [Emla 2.5% Cream] - Allergies Allergies/Adverse Reactions: Allergies Allergy/AdvReac Type Severity Reaction Status Date / Time No Known Drug Allergies Allergy Verified 11/25/20 10:01 Review of Systems - Other Findings Other Findings: 10 pt ros as above otherwise unremarkable Exam - Vital Signs Reviewed Vital Signs: Yes Vital Signs: Vital Signs x48h Temp Pulse Resp BP Pulse Ox 11/26/20 06:30 36 C L 73 16 130/90 H 96 - Physical Exam General Appearance: positive: No acute distress, Alert Eyes Bilateral: positive: PERRL, EOMI ENT: positive: No signs of dehydration Neck: positive: No JVD Respiratory: positive: No respiratory distress, Breath sounds nml Cardiovascular: positive: Regular rate & rhythm Abdomen: positive: No distention Neurologic/Psychiatric: positive: Oriented x3 Conclusion/Plan - Problem List (1) Uterine cancer Conclusion/Plan: plan port placement for chemotherapy. parq held and consent obtained
[2020-11-26] MEDS ORDERED: BUPIVACAINE 0.25% PF 30 ML VIAL ONE (07:31)
[2020-11-26] MEDS ORDERED: LIDOCAINE 1% 50 ML MDV SUBQ ONE ×2 (07:46)
[2020-11-26] MEDS ORDERED: BUPIVACAINE 0.25% PF 30 ML VIAL SUBQ ONE ×2 (07:46)
--- NOTE | 2020-11-26 08:31 | OPERATIVE REPORT ---
Operative Report - General Procedure Date: 11/26/20 Planned Procedure: power port placement Pre-Op Diagnosis: uterine cancer Procedure Performed: left subclavian power port placement Post Op Diagnosis: uterine cancer - Procedure Note Primary Surgeon: bartolo sutton Anesthesia Technique: Local, MAC Pathology: none Estimated Blood Loss (mL): 2 Drain/Tube Type: Other (none) Indications: chemotherapy Findings: good position confirmed under fluoro Complications: none - Other Other Information/Narrative: The patient was properly identified brought to the operating room and placed in supine position. Monitored anesthesia care was given as well as IV sedation. A towel roll was placed under the upper back. The patient was prepped and draped in a sterile fashion and given preoperative antibiotics. Local anesthetic was given. The left subclavian vein was easily accessed first pass with a needle. A subcutaneous pocket on the left upper chest was created measuring approximately 2-1/2 cm. Portacatheter tubing was then placed subcutaneous up to the venous access point. The portacatheter tubing was then easily placed with the use of a dilator peel-away sheath. The tubing was aspirated and flushed with saline. Under fluoroscopic guidance the tubing was pulled back to the junction of the atrium and the superior vena cava. The portacatheter aspirated and flushed easily assuring good position. The portacatheter was then cut to size and further assembled. The port was secured to subcutaneous tissue with 2 interrupted 4-0 Prolene sutures. The port again was aspirated and flushed now with heparin. Buried interrupted subdermal 3-0 Vicryl sutures were then placed. Skin was closed with buried interrupted and running 4-0 Monocryl subcuticular suture. Dressing was applied. The patient tolerated the procedure well was awakened and brought to recovery in good condition.
[2020-11-26] MEDS ORDERED: HYDROcod/ACETAM 5/325 MG TABLET PO PRN (08:36)
[2020-11-26 09:06] VITALS: BP 139/94
--- NOTE | 2020-11-26 09:23 | ANESTHESIA POST OP EVALUATION ---
Anesthesia Post Eval - Post Anesthesia Eval Vitals: Last Vital Signs Temp 36.2 C L 11/26/20 09:06 Pulse 65 11/26/20 09:06 Resp 11 L 11/26/20 09:06 BP 139/94 H 11/26/20 09:06 Pulse Ox 100 11/26/20 09:06 CV Function Including HR & BP: Stable Pain Control: Satisfactory Nausea & Vomiting: Negative Mental Status: Baseline Respiratory Status: Airway Patent Hydration Status: Satisfactory Anesthesia Complications: None
--- NOTE | 2020-11-26 09:47 | XRAY Report ---
PROCEDURE: OR Port-A-Cath INDICATIONS: PORT PLACEMENT TECHNIQUE: Single operative image COMPARISON: None. FINDINGS: A single operative image demonstrates that a central venous catheter tip projects to the SVC right at rial junction. IMPRESSION: Operative imaging utilized during Port-A-Cath placement. Reviewed by: Tyson Reyes MD on 11/26/2020 9:46 AM PDT Approved by: Tyson Reyes MD on 11/26/2020 9:46 AM PDT Station ID: [id number]
== END 2020-11-26 06:14 | disposition home or self-care (01) ==
LOC: SDS 06:13
PROVIDERS: ATTEND Surgery
DX: C55 Malignant neoplasm of uterus, part unspecified (principal); I10 Essential (primary) hypertension; R01.1 Cardiac murmur, unspecified; E78.00 Pure hypercholesterolemia, unspecified; K21.9 Gastro-esophageal reflux disease without esophagitis; R32 Unspecified urinary incontinence; R35.0 Frequency of micturition; E66.9 Obesity, unspecified; Z68.32 Body mass index [BMI] 32.0-32.9, adult; Z79.899 Other long term (current) drug therapy; Z96.649 Presence of unspecified artificial hip joint; Z90.710 Acquired absence of both cervix and uterus
CPT/HCPCS: 36561; C1788; J0690; J7120

== ENCOUNTER 2021-04-02 14:01 | Outpatient (CLI) | payer MEDICARE, OTHER ==
--- NOTE | 2021-04-03 10:17 | Mammography Report ---
BILATERAL DIGITAL SCREENING MAMMOGRAM 3D/2D: 04/02/2021 CLINICAL: Routine screening. Comparison is made to exams dated: 10/10/2019 mammogram, 10/07/2017 mammogram, 07/09/2016 mammogram, 07/06 mammogram, 06/05/2014 mammogram, and 05/31/2013 mammogram - [facility]. The tis keely of both breasts is heterogeneously dense. This may lower the sensitivity of mammography. No significant masses, calcifications, or other findings are seen in either breast. There has been no significant interval change. IMPRESSION: NEGATIVE There is no mammographic evidence of malignancy. A 1 year screening mammogram is recommended. This exam was interpreted at Station ID: [id number]. NOTE: For mammograms, a report in lay terms will be sent to the patient. Approximately 15% of breast malignancies will not be visualized mammographically. In the management of a palpable breast mass, a negative mammogram must not discourage biopsy of a clinically suspicious lesion. Electronically Signed By: Galo Mccord M.D. ddp/penrad:04/02/2021 15:04:36 ACR BI-RADS Category 1: Negative 3341F PARENCHYMAL PATTERN: (D) - The breast(s) demonstrate(s) heterogeneously dense fibroglandular huseyin moore. BI-RADS CATEGORY: (1) - 1 RECOMMENDATION: (ANNUAL) - Recommend routine annual screening mammography. [id number] 1 year screening LATERALITY: (B)
== END 2021-04-02 14:02 | disposition home or self-care (01) ==
LOC: DI 14:01
DX: Z12.31 Encounter for screening mammogram for malignant neoplasm of breast (principal)

== ENCOUNTER 2021-06-30 11:08 | Outpatient (CLI) | payer MEDICARE, OTHER ==
[2021-06-30 11:22] LABS: BILIRUBIN,URINE NEGATIVE (NEGATIVE); GLUCOSE, URINE (UA) NEGATIVE (NEGATIVE); KETONES,URINE (UA) NEGATIVE (NEGATIVE); LEUKOCYTE ESTERASE, URINE NEGATIVE (NEGATIVE); NITRITE,URINE NEGATIVE (NEGATIVE); OCCULT BLOOD,URINE NEGATIVE (NEGATIVE); PROTEIN,URINE NEGATIVE (NEGATIVE); UROBILINOGEN,URINE 0.2 (NORMAL) E.U./dL (NORMAL)
[2021-06-30 11:41] LABS: BACTERIA,URINE Rare /HPF (None Seen); RBC,URINE 0-5 /HPF (0-5); SQUAMOUS EPITHELIAL CELL,UR RARE Squamous (<= Few); WBC,URINE 0-3 /HPF (0-5)
[2021-06-30 11:42] LABS: % IRON SATURATION 25 % (20-50); CHOL/HDL RATIO 3.1 (<4.4); CHOLESTEROL 181 mg/dL; HDL CHOLESTEROL 59 mg/dL; IRON 85 ug/dL (28-170); LDL CHOLESTEROL,CALCULATED 94 mg/dL; LDL/HDL RATIO 1.6 (<4.4); TOTAL IRON BINDING CAPACITY 343 ug/dL (250-450); TRANSFERRIN 245 mg/dL (192-382); TRIGLYCERIDES 138 mg/dL; VLDL CHOLESTEROL 28 mg/dL
[2021-06-30 11:49] LABS: CLARITY,URINE CLEAR (CLEAR)
[2021-06-30 11:52] LABS: THYROID STIMULATING HORMONE 3.8 uIU/mL (0.34-5.60)
[2021-06-30 11:59] LABS: FERRITIN 35.1 ng/mL (11.0-306.8)
[2021-06-30 12:11] LABS: ESTIMATED AVERAGE GLUCOSE 120 mg/dL (70-100); HEMOGLOBIN A1c% 5.8 % (4.27-6.07)
== END 2021-06-30 11:09 | disposition home or self-care (01) ==
LOC: LAB 11:08
PROVIDERS: ATTEND Nurse Practitioner
DX: E78.2 Mixed hyperlipidemia (principal); I10 Essential (primary) hypertension; R53.83 Other fatigue
CPT/HCPCS: 36415; 80061; 81001; 82607; 82728; 83036; 83540; 83721; 84443; 84466; 87086

== ENCOUNTER 2021-08-18 08:14 | Outpatient (CLI) | payer MEDICARE, OTHER ==
--- NOTE | 2021-08-19 08:19 | Ultrasound Report ---
PROCEDURE: Duplex Ext Veins Right INDICATIONS: CLAUDICATION CALF, VARICOSE VEINS TECHNIQUE: Real-time imaging, as well as color and pulse Doppler interrogation, were performed of the lower extr emity deep veins from the inguinal ligament to the popliteal fossa. COMPARISON: Right posterior knee pain FINDINGS: The deep veins are normally compressible, and free of intraluminal thrombus. Color and pu lse Doppler demonstrate normal phasic intraluminal flow. There is normal augmentation response to di stal compression maneuver. IMPRESSION: No sonographic evidence of DVT. Reviewed by: Giuseppe Quintero MD on 08/19/2021 8:18 AM PDT Approved by: Giuseppe Quintero MD on 08/19/2021 8:18 AM PDT Station ID: [id number]
--- NOTE | 2021-08-19 09:27 | Ultrasound Report ---
PROCEDURE: Duplex Lwr Ext Arterial Bilat INDICATIONS: CLAUDICATION CALF, VARICOSE VEINS TECHNIQUE: Color and pulsed spectral and duplex Doppler interrogation was performed of both lower extremity jolie ria systems, with image documentation. COMPARISON: None. FINDINGS: These images demonstrate normal flow velocities in the bilateral lower extremity arterial system with normal triphasic spectral waveforms. There is no grayscale evidence of arterial stenosis. IMPRESSION: Normal bilateral lower extremity arterial duplex Doppler ultrasound study. The lower extremity arteri al circulation appears widely patent bilaterally. Reviewed by: Giuseppe Quintero MD on 08/19/2021 9:25 AM PDT Approved by: Giuseppe Quintero MD on 08/19/2021 9:25 AM PDT Station ID: [id number]
== END 2021-08-18 08:15 | disposition home or self-care (01) ==
LOC: DI 08:14
PROVIDERS: ATTEND Nurse Practitioner
DX: I73.9 Peripheral vascular disease, unspecified (principal); I83.90 Asymptomatic varicose veins of unspecified lower extremity
CPT/HCPCS: 93925

== ENCOUNTER 2021-12-31 10:34 | Outpatient (CLI) | payer MEDICARE, OTHER | END 2021-12-31 10:35 | disposition home or self-care (01) | LOC: LAB 10:34 | PROVIDERS: ATTEND Obstetrics & Gynecology | DX: C55 Malignant neoplasm of uterus, part unspecified (principal) | CPT/HCPCS: 36415; 86304 ==

== ENCOUNTER 2022-07-12 12:57 | Outpatient (CLI) | payer MEDICARE, OTHER | END 2022-07-12 12:58 | disposition home or self-care (01) | LOC: LAB 12:57 | PROVIDERS: ATTEND Obstetrics & Gynecology | DX: C55 Malignant neoplasm of uterus, part unspecified (principal) | CPT/HCPCS: 36415; 86304 ==

== ENCOUNTER 2022-07-30 09:24 | Outpatient (CLI) | payer MEDICARE, OTHER ==
[2022-07-30 09:35] LABS: BASOPHILS # (AUTO) 0.1 10^3/uL (0.0-0.1); BASOPHILS % (AUTO) 1.3 %; EOSINOPHILS # (AUTO) 0.1 10^3/uL (0.0-0.7); EOSINOPHILS % (AUTO) 1.1 %; HGB - HEMOGLOBIN 12.6 g/dL (12.0-16.0); LYMPHOCYTES # (AUTO) 1.5 10^3/uL (1.5-3.5); LYMPHOCYTES % (AUTO) 32.3 %; MEAN CORPUSCULAR HGB CONC 31.5 g/dL (32.0-36.0); MEAN PLATELET VOLUME 9.4 fL (7.9-10.8); MONOCYTES # (AUTO) 0.4 10^3/uL (0.0-1.0); MONOCYTES % (AUTO) 9.2 %; NEUTROPHILS # (AUTO) 2.6 10^3/uL (1.5-6.6); NEUTROPHILS % (AUTO) 55.9 %; PLT - PLATELET COUNT 194 10^3/uL (130-450); RED BLOOD COUNT 4.35 10^6/uL (4.20-5.40); RED CELL DISTRIBUTION WIDTH 12.6 % (12.0-15.0); WHITE BLOOD COUNT 4.6 x10^3/uL (4.8-10.8)
[2022-07-30 10:10] LABS: THYROID STIMULATING HORMONE 3.06 uIU/mL (0.34-5.60)
[2022-07-30 10:18] LABS: ALBUMIN 4.1 g/dL (3.2-5.5); ALBUMIN/GLOBULIN RATIO 1.3 (1.0-2.2); ALKALINE PHOSPHATASE 64 IU/L (42-121); ALT ALANINE AMINOTRANSFERASE 13 IU/L (10-60); AST ASPARTATE AMINOTRANSFERASE 18 IU/L (10-42); BILIRUBIN,TOTAL 0.6 mg/dL (0.2-1.0); BUN - BLOOD UREA NITROGEN 21 mg/dL (6-20); CALCIUM 9.5 mg/dL (8.5-10.3); CARBON DIOXIDE - CO2 27 mmol/L (21-32); CHLORIDE 104 mmol/L (101-111); CHOL/HDL RATIO 2.9 (<4.4); CHOLESTEROL 163 mg/dL; CREATININE 0.9 mg/dL (0.4-1.0); GFR - MDRD 61 (>89); GLUCOSE 106 mg/dL (70-100); HDL CHOLESTEROL 56 mg/dL; LDL CHOLESTEROL,CALCULATED 88 mg/dL; LDL/HDL RATIO 1.6 (<4.4); SODIUM 139 mmol/L (135-145); TOTAL PROTEIN 7.3 g/dL (6.7-8.2); TRIGLYCERIDES 93 mg/dL; VLDL CHOLESTEROL 19 mg/dL
== END 2022-07-30 09:25 | disposition home or self-care (01) ==
LOC: LAB 09:24
PROVIDERS: ATTEND Nurse Practitioner
DX: E78.2 Mixed hyperlipidemia (principal); R53.83 Other fatigue
CPT/HCPCS: 36415; 80053; 80061; 83721; 84443; 85025

== ENCOUNTER 2022-08-03 11:24 | Outpatient (CLI) | payer MEDICARE, OTHER ==
--- NOTE | 2022-08-04 10:36 | Mammography Report ---
BILATERAL DIGITAL SCREENING MAMMOGRAM 3D/2D: 08/03/2022 CLINICAL: Routine screening. Family history of breast cancer. Comparison is made to exams dated: 04/02/2021 mammogram, 10/10/2019 mammogram, 10/07/2017 mammogram, 06/30 mammogram, and 07/07/2015 mammogram - [facility]. Both breasts are heterogeneously dense, which may obscure small masses (category c / 51-75% glandular tissue). No significant masses, calcifications, or other findings are seen in either breast. There has been no significant interval change. IMPRESSION: NEGATIVE There is no mammographic evidence of malignancy. A 1 year screening mammogram is recommended. Based on the Tyrer Cuzick model (a risk assessment model) the patients lifetime risk is 15.4% and he r 10 year risk is 14.0%. According to the ACR, ACS, and NCCN guidelines, an annual breast MRI exam al vanessa with mammogram is recommended if the patients lifetime risk is 20% or greater. This exam was interpreted at Station ID: [id number]. NOTE: For mammograms, a report in lay terms will be sent to the patient. Approximately 15% of breast malignancies will not be visualized mammographically. In the management of a palpable breast mass, a negative mammogram must not discourage biopsy of a clinically suspicious lesion. Electronically Signed By: Jordan oneill/cleo:08/03/2022 17:28:20 letter sent: No_Letter ACR BI-RADS Category 1: Negative 3341F PARENCHYMAL PATTERN: (D) - The breast(s) demonstrate(s) heterogeneously dense fibroglandular huseyin moore. BI-RADS CATEGORY: (1) - 1 Mammogram [id number] 1 year screening LATERALITY: (B)
== END 2022-08-03 11:25 | disposition home or self-care (01) ==
LOC: DI 11:24
PROVIDERS: ATTEND Obstetrics & Gynecology
DX: Z12.31 Encounter for screening mammogram for malignant neoplasm of breast (principal); Z80.3 Family history of malignant neoplasm of breast

== ENCOUNTER 2022-08-18 12:51 | Outpatient (CLI) | payer MEDICARE, OTHER ==
--- NOTE | 2022-08-18 14:59 | DEXA Report ---
PROCEDURE: Dexa Spine and/or Hip INDICATIONS: POST MENOPAUSAL TECHNIQUE: Dual energy x-ray absorptiometry (DXA) was performed on a [employer] System. Regions measur ed are the AP Spine, femoral neck, and if needed forearm. COMPARISON: 12/13/2017 FINDINGS: Lumbar Spine: Bone Mineral Density 0.904 g/cm/cm,T score -2.3, statistically decreased from prior. Right Femoral Neck: Bone Mineral Density 0.752 g/cm/cm, T score -2.1, baseline. Right Hip: Bone Mineral Density 0.811 g/cm/cm,T score -1.6, baseline. (T score greater or equal to -1.0: NORMAL) (T score from -1.1 to -2.4: OSTEOPENIA) (T score less than or equal to -2.5 to: OSTEOPOROSIS) Impression: Osteopenia, with statistically decreased bone mineral density of the lumbar spine compared with prior . Patients with diagnosis of osteoporosis or osteopenia should have regular bone mineral density assess ment. For those eligible for Medicare, routine testing is allowed once every 2 years. Testing frequ ency can be increased for patients who have rapidly progressing disease or for those who are receivin g medical therapy to restore bone mass. Reviewed by: Anthony Torres on 08/18/2022 2:57 PM PDT Approved by: Anthony Torres on 08/18/2022 2:57 PM PDT Station ID: [id number]
== END 2022-08-18 12:52 | disposition home or self-care (01) ==
LOC: DI 12:51
PROVIDERS: ATTEND Nurse Practitioner
DX: M85.89 Other specified disorders of bone density and structure, multiple sites (principal); Z78.0 Asymptomatic menopausal state

== ENCOUNTER 2023-02-23 14:22 | Outpatient (CLI) | payer MEDICARE, OTHER | END 2023-02-23 14:23 | disposition home or self-care (01) | LOC: LAB 14:22 | PROVIDERS: ATTEND Obstetrics & Gynecology | DX: C55 Malignant neoplasm of uterus, part unspecified (principal) | CPT/HCPCS: 36415; 86304 ==

== ENCOUNTER 2023-08-10 14:28 | Outpatient (CLI) | payer MEDICARE, OTHER | END 2023-08-10 14:29 | disposition home or self-care (01) | LOC: LAB 14:28 | PROVIDERS: ATTEND Obstetrics & Gynecology | DX: C55 Malignant neoplasm of uterus, part unspecified (principal) | CPT/HCPCS: 36415; 86304 ==